=== PATIENT | male | born 1980 | race Caucasian/White ===

== ENCOUNTER → 2020-11-24 | Day surgery (SDC) | payer BC ==
[~2020-11-24] MED LIST: Dexamethasone 4 MG/ML 5 ML MDV ONE; Glucagon,Human Recombinant 1 MG Vial IVPUSH ONE; Lactated Ringers 1,000 ML IV SCH; Lactated Ringers 1,000 ML ONE; Lidocaine 1% 4 ML ONE; Lidocaine 1%/Sod Bicarbonate in NS 8.4% 1 ML Syringe IDERM PRN; Midazolam 1 MG/ML 2 ML SDV ONE; Ondansetron 4 MG/2 ML SDV ONE; Propofol 200 MG/20 ML SDV ONE; Sodium Chloride 0.9% 10 ML Syringe FLUSH PRN; Succinylcholine/Sod PF 100 MG/5 ML SYRINGE IV ONE; fentaNYL 100 MCG/2 ML SDV ONE
--- NOTE | 2020-11-24 08:33 | EDM.PDOC ---
ED HPI GENERAL MEDICAL PROBLEM - General Chief Complaint: Gastrointestinal Problem Stated Complaint: SOMETHING LODGED IN ESOPHAGUS Time Seen by Provider: 11/24/20 08:29 - History of Present Illness INITIAL COMMENTS - FREE TEXT/NARRATIVE: 40-year-old male presents the emergency room with some stuck in his throat. Patient states he was eating steak last night and got some stuck it feels like it is at the bottom of his chest. He has not been able to clear saliva or drink water since that time. His past medical history is unremarkable. He has no breathing difficulties or shortness of breath. Epigastric Pain Score (Numeric/FACES): 8 - Related Data Allergies Allergy/AdvReac Type Severity Reaction Status Date / Time No Known Allergies Allergy Verified 11/24/20 08:23 Past Medical History - Past Health History Medical/Surgical History: Denies Medical/Surgical History Social & Family History - Tobacco Use Tobacco Use Status *Q: Never Tobacco User ED ROS GENERAL - Review of Systems Review Of Systems: See Below Constitutional: Reports: No Symptoms HEENT: Reports: No Symptoms Respiratory: Reports: No Symptoms Cardiovascular: Reports: No Symptoms Endocrine: Reports: No Symptoms GI/Abdominal: Reports: Difficulty Swallowing : Reports: No Symptoms Musculoskeletal: Reports: No Symptoms Skin: Reports: No Symptoms ED EXAM, GENERAL - Physical Exam Exam: See Below Exam Limited By: No Limitations General Appearance: Alert, No Apparent Distress Head: Atraumatic, Normocephalic Neck: Normal Inspection, Supple, Non-Tender, Full Range of Motion Respiratory/Chest: No Respiratory Distress Cardiovascular: Regular Rate, Rhythm, No Edema, No Murmur GI/Abdominal: Normal Bowel Sounds, Soft, Non-Tender Course - Vital Signs Last Recorded V/S: Last Vital Signs Temp 36.6 C 11/24/20 08:17 Pulse 89 11/24/20 08:17 Resp 18 11/24/20 08:17 BP 145/95 H 11/24/20 08:17 Pulse Ox 94 L 11/24/20 08:17 - Orders/Labs/Meds Orders: Active Orders 24 hr Category Date Time Status Peripheral IV Care [RC] . DIRECTED Care 11/24/20 12:03 Active Verify Patient Consent Obtain [RC] ASDIRECTED Care 11/24/20 12:03 Active CORONAVIRUS COVID-19 JASPER [[facility]LEC] Stat Lab 11/24/20 11:25 Received Lactated Ringers [Ringers, Lactated] 1,000 ml Med 11/24/20 12:15 Active IV ASDIRECTED Lidocaine 1%/Sod Bicarbonate [Buffered Lidocaine 1% in Med 11/24/20 12:03 Active NS 8.4%] 0.25 ml IDERM ONETIME PRN Sodium Chloride 0.9% [Saline Flush] Med 11/24/20 12:03 Active 10 ml FLUSH ASDIRECTED PRN Medication Administration Instruction [OM.PC] Routine Oth 11/24/20 12:03 Ordered Peripheral IV Insertion Adult [OM.PC] Routine Oth 11/24/20 12:03 Ordered Medication Orders Lactated Ringer's (Ringers, Lactated) 1,000 mls @ 125 mls/hr IV ASDIRECTED BURTON Stop: 11/24/20 23:00 Lidocaine/Sodium Bicarbonate (Lidocaine 1%/Sod Bicarbonate In Ns 8.4% 1 Ml Syringe) 0.25 ml IDERM ONETIME PRN PRN Reason: Prior to IV Start Stop: 11/24/20 18:00 Sodium Chloride (Sodium Chloride 0.9% 10 Ml Syringe) 10 ml FLUSH ASDIRECTED PRN PRN Reason: Keep Vein Open Stop: 11/24/20 23:00 Meds: Medications Generic Name Dose Route Start Last Admin Trade Name Freq PRN Reason Stop Dose Admin Lactated Ringer's 1,000 mls @ 125 mls/hr 11/24/20 12:15 Ringers, Lactated IV 11/24/20 23:00 ASDIRECTED BURTON Lidocaine/Sodium Bicarbonate 0.25 ml 11/24/20 12:03 Lidocaine 1%/Sod Bicarbonate In Ns 8.4% 1 Ml Syringe IDERM 11/24/20 18:00 ONETIME PRN Prior to IV Start Sodium Chloride 10 ml 11/24/20 12:03 Sodium Chloride 0.9% 10 Ml Syringe FLUSH 11/24/20 23:00 ASDIRECTED PRN Keep Vein Open Discontinued Medications Generic Name Dose Route Start Last Admin Trade Name Freq PRN Reason Stop Dose Admin Glucagon 1 mg 11/24/20 08:32 11/24/20 08:53 Glucagon,Human Recombinant 1 Mg Vial IVPUSH 11/24/20 08:33 1 mg ONETIME ONE Administration - Re-Assessments/Exams Free Text/Narrative Re-Assessment/Exam: 11/24/20 10:07 He attempted a milligram of glucagon. Nursing is going to try some carbonated beverage and see if that will help dissolve it. Case discussed with Dr. Light on-call surgeon. She would like the surgery crew ready at 2:00. She will be over sooner if the patient's condition deteriorates. 11/24/20 12:42 Foreign body remains lodged at this time despite trying to dissolve it with [employer] and giving glucagon. This will require EGD as stated above Departure - Departure Time of Disposition: 12:41 Disposition: DC/Tfer to [facility] Clinical Impression: Impacted esophageal foreign body - Discharge Information Sepsis Event Note (ED) - Evaluation Sepsis Screening Result: No Definite Risk - Focused Exam Vital Signs: Vital Signs Temp Pulse Resp BP Pulse Ox 11/24/20 08:17 36.6 C 89 18 145/95 H 94 L - My Orders Last 24 Hours: My Active Orders 11/24/20 11:25 CORONAVIRUS COVID-19 JASPER [MOLEC] Stat - Assessment/Plan Last 24 Hours: My Active Orders 11/24/20 11:25 CORONAVIRUS COVID-19 JASPER [MOLEC] Stat
--- NOTE | 2020-11-24 12:20 | PCM.PREANE ---
Preanesthetic Assessment - Anesthesia/Transfusion/Family Hx Anesthesia History: Prior Anesthesia Without Reaction Family History of Anesthesia Reaction: No Transfusion History: No Prior Transfusion(s) - Review of Systems General: No Symptoms Pulmonary: No Symptoms Cardiovascular: No Symptoms Gastrointestinal: Difficulty Swallowing, Other (pt ate steak last night and feels like its in his throat. attempted glucogon in ER as well as carbonated fluids at 0945 with no success, stated he split it all out. no fluids drank since 1999., pt states that he has a hx of GERD no medications as he states he has been feeling well. no nausea) Neurological: No Symptoms Other: Reports: None - Physical Assessment NPO Status Date: 11/23/20 NPO Status Time: 20:00 Vital Signs: Last Vital Signs Temp 36.6 C 11/24/20 08:17 Pulse 89 11/24/20 08:17 Resp 18 11/24/20 08:17 BP 145/95 H 11/24/20 08:17 Pulse Ox 94 L 11/24/20 08:17 Weight: 81.647 kg ASA Class: 1E Mental Status: Alert & Oriented x3 Airway Class: Mallampati = 2 Dentition: Reports: Normal Dentition Thyro-Mental Finger Breadths: 3 Mouth Opening Finger Breadths: 3 ROM/Head Extension: Full Lungs: Clear to Auscultation, Normal Respiratory Effort Cardiovascular: Regular Rate, Regular Rhythm - Allergies Allergies/Adverse Reactions: Allergies Allergy/AdvReac Type Severity Reaction Status Date / Time No Known Allergies Allergy Verified 11/24/20 08:23 - Blood Blood Available: No Product(s) Available: None - Anesthesia Plan Pre-Op Medication Ordered: None - Acknowledgements Anesthesia Type Planned: MAC Pt an Appropriate Candidate for the Planned Anesthesia: Yes Alternatives and Risks of Anesthesia Discussed w Pt/Guardian: Yes Pt/Guardian Understands and Agrees with Anesthesia Plan: Yes PreAnesthesia Questionnaire - Past Health History Medical/Surgical History: Denies Medical/Surgical History - SUBSTANCE USE Tobacco Use Status *Q: Never Tobacco User - CURRENT (IN HOUSE) MEDS Current Meds: Current Medications Lactated Ringer's (Ringers, Lactated) 1,000 mls @ 125 mls/hr IV ASDIRECTED BURTON Stop: 11/24/20 23:00 Lidocaine/Sodium Bicarbonate (Lidocaine 1%/Sod Bicarbonate In Ns 8.4% 1 Ml Syringe) 0.25 ml IDERM ONETIME PRN PRN Reason: Prior to IV Start Stop: 11/24/20 18:00 Sodium Chloride (Sodium Chloride 0.9% 10 Ml Syringe) 10 ml FLUSH ASDIRECTED PRN PRN Reason: Keep Vein Open Stop: 11/24/20 23:00 Discontinued Medications Glucagon (Glucagon,Human Recombinant 1 Mg Vial) 1 mg IVPUSH ONETIME ONE Stop: 11/24/20 08:33 Last Admin: 11/24/20 08:53 Dose: 1 mg Documented by:
--- NOTE | 2020-11-24 14:53 | PCM.HP.2 ---
H&P History of Present Illness - General Date of Service: 11/24/20 Admit Problem/Dx: esophageal food obstruction Source of Information: Patient, Provider History Limitations: Reports: No Limitations - History of Present Illness Initial Comments - Free Text/Narative: The patient is a 40 y/o gentleman who presented to the emergency department with a 1 day history of an esophageal food bolus. He reports having steak last night and he did not pass he has not been able to tolerate fluids or secretions since that time. He complains of pain and pressure in the epigastric area he reports this is happened one time before and he did seek medical treatment but did not require any surgical intervention. He was previously diagnosed with GERD but does not take any medication currently. Epigastric Pain Score (Numeric/FACES): 8 - Related Data Allergies/Adverse Reactions: Allergies Allergy/AdvReac Type Severity Reaction Status Date / Time No Known Allergies Allergy Verified 11/24/20 08:23 Past Medical History - Past Health History Medical/Surgical History: Denies Medical/Surgical History Social & Family History - Family History : Reports: Dialysis Endocrine/Metabolic: Reports: Diabetes, type II Oncologic: Reports: Colon, Lymphoma - Tobacco Use Tobacco Use Status *Q: Never Tobacco User H&P Review of Systems - Review of Systems: Review Of Systems: See Below General: Reports: No Symptoms HEENT: Reports: No Symptoms Pulmonary: Reports: No Symptoms Cardiovascular: Reports: No Symptoms Gastrointestinal: Reports: Abdominal Pain, Difficulty Swallowing Genitourinary: Reports: No Symptoms Musculoskeletal: Reports: No Symptoms Skin: Reports: No Symptoms Exam - Exam Exam: See Below - Vital Signs Vital Signs: Last Vital Signs Temp 36.6 C 11/24/20 08:17 Pulse 89 11/24/20 08:17 Resp 18 11/24/20 08:17 BP 145/95 H 11/24/20 08:17 Pulse Ox 94 L 11/24/20 08:17 Weight: 81.647 kg - Exam Quality Assessment: No: Supplemental Oxygen General: Alert, Oriented HEENT: Conjunctiva Clear, EOMI Neck: Supple Lungs: Normal Respiratory Effort Cardiovascular: Regular Rate, Regular Rhythm GI/Abdominal Exam: Soft, Distended, Tender (in the epigastrium) Extremities: No Pedal Edema Peripheral Pulses: 2+: Dorsalis Pedis (L), Dorsalis Pedis (R) Neurological: Cranial Nerves Intact Neuro Extensive - Mental Status: Oriented x3, Normal Mood/Affect - Patient Data Lab Results Last 24 hrs: Laboratory Results - last 24 hr 11/24/20 Range/Units 11:25 SARS-CoV-2 RNA (JASPER) Negative (NEGATIVE) Sepsis Event Note - Evaluation Sepsis Screening Result: No Definite Risk - Focused Exam Vital Signs: Vital Signs Temp Pulse Resp BP Pulse Ox 11/24/20 08:17 36.6 C 89 18 145/95 H 94 L *Q Meaningful Use (ADM) - VTE Risk Assess *Q Each Risk Factor Represents 1 Point: None Total Score 1 Point Risk Factors: 0 - Problem List (1) Impacted esophageal foreign body SNOMED Code(s): 77202205 ICD Code: T18.108A - UNSP FOREIGN BODY IN ESOPHAGUS CAUSING OTH INJURY, INIT Status: Acute Current Visit: Yes Problem List Initiated/Reviewed/Updated: Yes Orders Last 24hrs: Active Orders 24 hr Category Date Time Status Peripheral IV Care [RC] . DIRECTED Care 11/24/20 12:03 Active Verify Patient Consent Obtain [RC] ASDIRECTED Care 11/24/20 12:03 Active Lactated Ringers [Ringers, Lactated] 1,000 ml Med 11/24/20 12:15 Active IV ASDIRECTED Lidocaine 1%/Sod Bicarbonate [Buffered Lidocaine 1% in Med 11/24/20 12:03 Active NS 8.4%] 0.25 ml IDERM ONETIME PRN Sodium Chloride 0.9% [Saline Flush] Med 11/24/20 12:03 Active 10 ml FLUSH ASDIRECTED PRN Medication Administration Instruction [OM.PC] Routine Oth 11/24/20 12:03 Ordered Peripheral IV Insertion Adult [OM.PC] Routine Oth 11/24/20 12:03 Ordered Medication Orders Lactated Ringer's (Ringers, Lactated) 1,000 mls @ 125 mls/hr IV ASDIRECTED BURTON Stop: 11/24/20 23:00 Lidocaine/Sodium Bicarbonate (Lidocaine 1%/Sod Bicarbonate In Ns 8.4% 1 Ml Syringe) 0.25 ml IDERM ONETIME PRN PRN Reason: Prior to IV Start Stop: 11/24/20 18:00 Sodium Chloride (Sodium Chloride 0.9% 10 Ml Syringe) 10 ml FLUSH ASDIRECTED PRN PRN Reason: Keep Vein Open Stop: 11/24/20 23:00 Assessment/Plan Comment:: 40 y/o gentleman with an obstructing esophageal food bolus. - discussed plan for EGD with intervention. Discussed possible need for dilation if there is a stricture present. Discussed risks of bleeding and perforation. His written consent was obtained - will have patient follow up in clinic for continued workup and evaluation of his dysphagia - plan for PPI x3 mo post-procedure. Mary Tee MD General surgery - Mortality Measure Prognosis:: Good
--- NOTE | 2020-11-24 14:58 | PCM.PRNOTE ---
- Free Text/Narrative Note: Date of procedure: November 24, 2020 Preoperative diagnosis: Esophageal food bolus Postoperative diagnosis: Same Surgeon: Mary Tee M.D. Procedure: EGD with intervention Anesthesia: General ET Environmental Services Lead: Arianna Sanchez CRNA IV fluids: 800 mL Estimated blood loss: 0 mL Findings: 1. Impacted food bolus in the distal esophagus 2. Esophagitis in the distal esophagus 3. Gastritis 4. Gastric polyp 5. Duodenitis 6. Duodenal ulcers Specimens: 1. Duodenal biopsies 2. Gastric antrum biopsies 3. Gastric polyp biopsies Indication: The patient is a 40-year-old gentleman who presented with an impacted food bolus. The patient's main complaint was difficulty swallowing and epigastric pain and discomfort. The patient was consented for an EGD with intervention. Risk of bleeding and perforation were discussed. The patient's consent was obtained Description of the procedure: The patient was taken to the endoscopy suite and placed on hemodynamic monitoring. The nurse grinder and plater induced general anesthesia with successful placement of an ET tube. The patient was positioned in the left lateral decubitus position. A timeout was performed. The endoscope was gently placed into the mouth to the back of the pharynx and introduced into the esophagus. The scope was gently advanced under direct v isualization down to the level of the lower esophagus. Fluid was noted in this area and was suctioned out. A food bolus was noted to be lodged in the distal esophagus. This was gently pushed into the lumen of the stomach. The stomach was then entered. Normal rugal folds were noted. The scope was advanced into the antrum. We noted linear erythema consistent with gastritis. The pylorus was then entered and the first and second portion of the duodenum was inspected. We did note some erythema and two subcentimeter, shallow ulcers in the first portion of the duodenal. Cold biopsy forceps were used to take biopsies of the duodenum. The scope was withdrawn to the stomach and biopsies taken with a cold biopsy forceps. The scope was then retroflexed in the cardia and fundus were investigated. A 2mm polyp was noted there and removed with a cold biopsy forceps. There is no evidence of any hiatal hernia. No other abnormalities were noted. The scope was then withdrawn while inspecting the esophagus. There was esophagitis of the distal esophagus. The procedure was terminated. the patient tolerated the procedure well without any evidence of complications. Mary Tee MD General Surgery
--- NOTE | 2020-11-24 15:00 | PCM.OPNOTE ---
- General Post-Op/Procedure Note Date of Surgery/Procedure: 11/24/20 Operative Procedure(s): EGD with intervention Findings: 1. Impacted food bolus in the distal esophagus 2. Esophagitis in the distal esophagus 3. Gastritis 4. Gastric polyp 5. Duodenitis 6. Duodenal ulcers Pre Op Diagnosis: Esophageal food bolus Post-Op Diagnosis: same Anesthesia Technique: General ET Tube Primary Surgeon: Mary Tee Anesthesia Provider: Arianna Sanchez Pathology: 1. Duodenal biopsies 2. Gastric antrum biopsies 3. Gastric polyp biopsies Fluid Replacement, Intraop: 800 Output, Urine Amount: 0 EBL in mLs: 0 Complications: none apparent Condition: Good
--- NOTE | 2020-11-24 15:08 | PCM.POSTAN ---
POST ANESTHESIA ASSESSMENT - MENTAL STATUS Mental Status: Alert, Oriented - VITAL SIGNS Vital Signs: Last Vital Signs Temp 36.5 C 11/24/20 15:00 Pulse 107 H 11/24/20 15:00 Resp 13 11/24/20 15:00 BP 128/77 11/24/20 15:00 Pulse Ox 97 11/24/20 15:00 - RESPIRATORY Respiratory Status: Respiratory Rate WNL, Airway Patent, O2 Saturation Stable, Supplemental Oxygen - CARDIOVASCULAR CV Status: Pulse Rate WNL, Blood Pressure Stable - GASTROINTESTINAL GI Status: No Symptoms - PAIN Pain Score: 0 - POST OP HYDRATION Hydration Status: Adequate & Stable
--- NOTE | 2020-11-24 15:14 | PCM48HPAN ---
Post Anesthesia Note - EVALUATION WITHIN 48HRS OF ANESTHETIC Vital Signs in Normal Range: Yes Patient Participated in Evaluation: Yes Respiratory Function Stable: Yes Airway Patent: Yes Cardiovascular Function Stable: Yes Hydration Status Stable: Yes Pain Control Satisfactory: Yes Nausea and Vomiting Control Satisfactory: Yes Mental Status Recovered: Yes Vital Signs: Last Vital Signs Temp 36.5 C 11/24/20 15:00 Pulse 107 H 11/24/20 15:00 Resp 13 11/24/20 15:00 BP 128/77 11/24/20 15:00 Pulse Ox 97 11/24/20 15:00
== END | disposition home or self-care (01) ==
LOC: JD.ED 08:07 → JD.SDS 12:04
PROVIDERS: ATTEND Surgery
DX: K31.89 Other diseases of stomach and duodenum (principal); I78.1 Nevus, non-neoplastic; K20.90 Esophagitis, unspecified without bleeding; K31.7 Polyp of stomach and duodenum; T18.128A Food in esophagus causing other injury, initial encounter; K29.90 Gastroduodenitis, unspecified, without bleeding; K26.9 Duodenal ulcer, unspecified as acute or chronic, without hemorrhage or perforation; Z01.812 Encounter for preprocedural laboratory examination; Z20.822 Contact with and (suspected) exposure to COVID-19
CPT/HCPCS: 43239; 43247; 87635; 96374; 99285; J0330; J1100; J1610; J2250; J2405; J2704; J3010; J7120; 00731; 99140; U0002